=== PATIENT | male | born 1975 | race African-American/Black ===

== ENCOUNTER 2025-05-30 17:01 | Emergency (ER) | payer OTHER, SELFPAY ==
--- OUTSIDE RECORDS SUMMARY | 2024-03-16 11:45 | XMS_ITS ---
Author Organization [facility] vices Address [address] [place], [place] [id number] Care Team Providers Care Neurology Stroke Physician Name Role Phone Ronnie Swartz Unavailable [phone] REASON FOR VISIT HTN & GERD Encounters Encounter Location Date Provider Diagnosis Main [address] [place], [place] [id number] 03/16/2024 Ronnie Swartz Plan Of Treatment No Information Progress Notes * Koko BHATIA JrDOB:1974 (49 yo M)Acc No.[id number]:03/16/2024 Medical Note Patient: Joselito LI Koko Ennis Provider: JUANA Arias :1975 A ge:48 Y S ex:Male Date:03/16/2024 Address:[address] [place], [place] [id number] Subjective: * Chief Complaints: * 1 . HTN & GERD. * Medical History: Objective: * Vitals: Assessment: Plan: * Treatment: * Billing Information: * Visit Code: * Procedure Codes: * Electronic signature of JUANA Devine on 05/30/2025 at 05:08 PM EDT Sign off status: Pending * Provider: JUANA Arias Date: 03/16/2024 Generated for Ronald ng/Fajuarezg/eTransmitting on: 05/30/2025 05:08 PM EDT
[2025-05-30 17:04] VITALS: BP 156/109; PULSE 106; TEMP 36.7; O2SAT 97; BMI 26.8
--- OUTSIDE RECORDS SUMMARY | 2025-05-30 17:08 | XMS_ITS | Encounter Summary ---
Author Organization [employer] tem Address [id number] [address] [place] [address] Care Team Providers Care Test Technician Name Role Phone Kong Mccarthy Kasandra MIRZA Primary Care Provider [phone] Encounter Details Date Type Department Care Team (Latest Contact Info) Description 05/27/2025 Travel Social History Tobacco Use Types Packs/Day Years Used Date Smoking Tobacco: Former Cigars Smokeless Tobacco: Never Comments:Quit smoking cigars about 10 yrs ago Alcohol Use Standard Drinks/Week Comments Yes 0 (1 standard drink = 0.6 oz pur e alcohol) socially Overall Financial Resource Strain (CARDIA) Answe r Date Recorded How hard is it for you to pa y for the very basics like food, housing, medical care, and heating? Not hard at all 04/15/2025 PHQ-2 Answer Date Recorded Total Score 0 04/15/2025 PRAPARE - Transportation Answer Date Re corded In the past 12 months, has l ack of transportation kept you from medical appointments or from getting medications? No 03/28 In the past 12 months, has l ack of transportation kept you from meetings, work, or from getting things needed for daily living? No 04/15/2025 Housing Instability Answer Date Recorde d Are you worried or concerned that in the next two months you may not have stable housing that you own, rent or stay in as a part of a household? No 04/15/2025 Childcare Answer Date Recorded Childcare Unknown 04/08/2019 Employment Answer Date Recorded Employment Unknown 04/08/2019 Hunger Screening Answer Date Recorded Within the past 12 months we worried whether our food would run out before we got money to buy more. Never True 05/27/2025 Within the past 12 months th e food we bought just didn't last and we didn't have money to get more. Never True 05/27/2025 Sex and Gender Information Value Date Recorded Sex Assigned at Not on file Legal Sex Male 11:57 AM EDT Gender Identity Not on file Sexual Orientation Not on file documented as of this encounter Plan of Treatment Upcoming Encounters Date Type Department Care Team (Late st Contact Info) Description 06/02/2025 3:00 PM EDT Office Visit [facility] [address] [place] [phone] Kong Mccarthy, DO [address] [facility], [facility], [facility] [address] 07/15/2025 3:30 PM EDT Office Visit [facility] [address] [place] [address] [place] [phone] Kong Mccarthy, DO [address] [facility], [facility], [facility] [place] [address] documented as of this encounter Visit Diagnoses Not on filedocumented in this encounter Additional Health Concerns Assessment Noted Time PHQ-9 Depression Total Score: 0 04/15/20 25 2:01 PM EDT documented as of this encounter Care Teams Test Technician Relationship Specialty Start Date End Date Kong Mccarthy DO [address] [facility], [facility], [facility] [place] [address] PCP - General Family Medicine 05/27/25 documented as of this encounter
--- OUTSIDE RECORDS SUMMARY | 2025-05-30 17:08 | XMS_ITS | Patient Health Record ---
Author Organization Count Includes [facility] vices Address [address] [place], [place] [id number] Care Team Providers Care Sustainability Engineer Name Role Phone Ronnie Swartz Unavailable [phone] Cayden Lori Unavailable Allergies No Known Allergies Reason For Referral No Information Medications Medication SIG (Take, Route, Frequency, Duration) Notes Start Date End Date Status amLODIPine Besylate 10 MG 1 tablet Orall y Once a day; Duration: 90 days Active Social History Tobacco Use: Social History Observation Description Date Details (start date - stop date) Never Smoker NA - NA Tobacco Use/Smoking Question Answer Notes Tobacco use: nonsmoker patient enter ed data How long has it been since you last smoked? 1-5 years CAGE-AID Questionnaire (2018 Edition) Question Answer Notes Have you ever felt that you ought to cut down on your drinking or drug use? No patient entered data Have you ever felt bad or gu ilty about your drinking or drug use? No patient entered data CAGE-AID Score 0 Interpretation Negative PRAPARE Question Answer Notes Date Completed/Updated: 09/26/2023 idae nt entered data What is your current housing situation? I have housing patient entered data Are you worried about losing your housing? No patient entered data What is the highest level of school that you have finished? More than high school patient entered data What is your current work situation? Unemployed and seeking work patient entered data In the past year, have you o r any family members you live with been unable to get any of the following when it was really needed? Check all that apply Utilities Has lack of transportation k ept you from medical appointments, meetings, work or from getting things needed for daily living? No How often do you see or talk to people that you care about and feel close to? (For example: talking to friends on the phone, visiting friends or family, going to taoism or club meetings) Less than once a week patient entered data In the past year have you sp ent more than 2 nights in a row in a alf, half-way, fci center, or juvenile correctional facility? No patient entered data What country are you from? [place] paul lugo entered data In the past year, have you b een afraid of your partner or ex-partner? No patient entered data PRAPARE Score: 7 Problems Problem Type SNOMED Code ICD Code Onset Dates Problem Status W/U Status Risk Notes Problem Essential hypertension (44352102) Hypertension, unspecified type (I10) Active confirmed Problem Gastroesophageal reflux disease (516666681) Gastroesophageal reflux disease, unspecified whether esophagitis present (K21.9) Active confirmed Problem Gastroesophageal reflux disease (290791047) GERD (gastroesophageal reflux disease) (K21.9) Active confirmed Comment:-pt was been having some intermittent chest discomfort -improved after start of PPI -now only minimal pains if any -has been taking omeprazole 20mg PRN and still not having chest pain issues. Usually only once or twice a week at the most. not really having issues -c/w current medication a this time on an as needed basis -f/u in 6 months or sooner if issues arise, Problem Depression screening (641404891) Screening for depression (Z13.31) Active confirmed Description:De pression screening Problem Hypertension (66276138) HTN (hypertension) (I10) Active confirmed Comment:-Pt's BP mildly elevated today in the office -Pt is asymptomatic at this time. -Currently taking Amlodipine 5mg. Compliant with medication and tolerating it well -CMP from 03/2019 was normal besides mildly elevated glucose -C/w current medication at this time. -Counseled pt on lifestyle modifications including low salt diet and physical activity -Encouraged smoking cessation -Encouraged pt to take BP at home at least a couple times a week. -f/u in 6+ months, Problem Costochondritis (29789164) Costochondritis (M94.0) Active confirmed Comment:-pt has chest pain that seems muscular in etiology -went to ED 10 days ago when pain just started -EKG, Labs, CXR all were normal at that time. chest pain in the same now as it was then -will give pt a course of prednisone to see if this helps with the chest pain as he already failed a muscle realxer and NSAID -explained pt needs to rest and can use heat/ice. -f/u in 2 weeks, Problem Pharyngitis (938302096) Pharyngitis (J02.9) Active confirmed Comment:-pt has had a sore throat -son dx with strep recently -pt does have a little drainage. but not a lot of other sig. sx -rapid strep was negative -will hold off on giving antibioitc at this time -Can also take vitamin C, Claritin, Mucinex, cough drops, and honey as needed for sx relief -call or f/u at the beginning of the week if not feeling better, Encounters Encounter Location Date Provider Diagnosis Main [address] [place], [place] [phone] 09/14/2024 Lori Rodarte Hypertension, unspecified type I10 Assessments Encounter Date Diagnosis (ICD Code) Assessment Notes Treatment Notes Treatment Clinical Notes Section Notes 09/14/2024 Hypertension, unspecified type (ICD-10 - I10) Plan Of Treatment No Information Insurance Providers Payer Name Payer Address Payer Phone Subscriber Number Group Number Insured Name Patient Relationship to Insured Coverage Start Date Coverage End Date [facility] [address] [place] [address] [id number] Koko Diane Self - patient is the insured 6 Medicaid [employer] after [employer] [address] [place] [address] [id number] Koko Diane Self - patient is the insured Medical (General) History Medical History History ICD Code GERD (gastroesophageal reflux disease) HTN (hypertension) Surgical History Surgery Date(Month/Year)
--- OUTSIDE RECORDS SUMMARY | 2025-05-30 17:08 | XMS_ITS | Clinical Summary ---
Author Organization [facility] [employer] [facility] tem Address [id number] [address] [place] [address] Care Team Providers Care Pie Bakery Laborer Name Role Phone Kong Mccarthy DO Primary Care Provider [phone] Allergies No known active allergies Medications amLODIPine (NORVASC) 10 mg tabletIndications :Essential hypertension Take 1 tablet (10 mg total) by mouth daily. 90 tablet 1 04/15/2025 Active Active Problems Problem Noted Date Diagnosed Date Essential hypertension 04/15/2025 Assessment & Plan (04/15/2025 5:47 PM EDT): Chronic hypertension with mildly elevated blood pressure today in the office. Patient is asymptomatic. Patient has been taking amlodipine intermittently to conserve medication. Continue with amlodipine 10 mg 1 tablet daily. Encounters Date Type Department Care Team Description 05/27/2025 2:48 PM EDT - 05/27/2025 4:25 PM EDT Emergency [facility] - Emergency [address] [place] [phone] Left leg pain (Primary Dx) Discharge Disposition: Home 05/27/2025 Travel 04/15/2025 2:00 PM EDT Office Visit [facility] [address] [place] [address] [place] [phone] Kong Mccarthy, Essential hypertension (Primary Dx); Special screening for malignant neoplasm of colon 04/15/2025 Travel 04/06/2025 11:00 AM EDT Office Visit [facility] [address] [place] [phone] Paola Soares APRN-ASSOCIATE AUTOMATION ENGINEER Abscess, gluteal, left (Primary Dx) 04/06/2025 Travel 03/23/2025 8:45 AM EDT Office Visit [facility] [address] [place] [address] Mo Blair MD Abscess, gluteal, left (Primary Dx) 03/23/2025 Travel from Last 3 Months Family History Medical History Relation Name Comments Cancer Father Cancer Mother Mom Hypertension Mother Mom Relation Name Status Comments Father Mother Mom had Bone cancer Social History Tobacco Use Types Packs/Day Years [...] on file Sexual Orientation Not on file Last Filed Vital Signs Vital Sign Reading Time Taken Comments Blood Pressure 151/93 05/27/2025 3:00 PM EDT Pulse 74 05/27/2025 2:58 PM EDT Temperature 36.5 C (97.7 F) 05/27/2025 2:58 PM EDT Respiratory Rate 16 05/27/2025 2:58 PM EDT Oxygen Saturation 99% 05/27/2025 2:58 PM EDT Inhaled Oxygen Concentration - - Weight 78 kg (172 lb) 05/27/2025 2:58 PM EDT Height 172.7 cm (5' 8 ) 05/27/2025 2:58 PM EDT Body Mass Index 26.15 05/27/2025 2:58 PM EDT Plan of Treatment Upcoming Encounters Date Type Department Care Team (Late st Contact Info) Description 06/02/2025 3:00 PM EDT Office Visit [facility] [address] [place] [phone] Kong Mccarthy, [address], [place] [address] 07/15/2025 3:30 PM EDT Office Visit [facility] [address] [place] [phone] Kong Mccarthy, [address], [place] [address] Health Maintenance Due Date Last Done Comments Adult BMI Follow Up Plan 1991 DTaP,Tdap and Td Vaccines (1 - Tdap) 1992 Zoster (Shingles) Vaccine (1 of 2) 2023 COVID-19 Vaccine (3 - season) 06/28/202404/2021, 07/13/2021 Influenza Vaccine 06/28/2025 Depression Screening 04/15/2026 04/15/2025 Tobacco Screening 04/15/2026 04/15/2025 Adult BMI Screening 05/27/2026 05/27/2025 Medical Devices Not on file Procedures Procedure Name Priority Date/Time Associated Diagnosis Comments XR HIP LT 2-3 VIEWS W OR WO PELVIS STAT 05/27/2025 3:25 PM EDT XR SPINE LUMBAR 2 OR 3 VWS STAT 05/27/2025 3:24 PM EDT from Last 3 Months Results * X-ray hip left 2-3 views with or without pelvis (05/27/2025 3:25 PM EDT) Anatomical Region Laterality Modality Lower Extremities, MSK, Hip Left Comp uted Radiography 05/27/2025 3:27 PM EDT Narrative 05/27/2025 3:28 PM EDT EXAM: XR HIP LT 2-3 VIEWS W OR WO PELVIS INDICATION: Pain COMPARISON: None TECHNIQUE: AP view of the pelvis and AP and frog leg views of the left hip FINDINGS/IMPRESSION: Pelvic ring is intact. No acute fractures, dislocations, or subluxations. Mild degenerative changes of the femoral acetabular joints Finalized by Kong Parekh on 05/27/2025 3:28 PM Procedure Note Kong Parekh MD - 05/27/2025 EXAM: XR HIP LT 2-3 VIEWS W OR WO PELVIS INDICATION: Pain COMPARISON: None TECHNIQUE: AP view of the pelvis and AP and frog leg views of the lefthip FINDINGS/IMPRESSION: Pelvic ring is intact. No acute fractures, dislocations, or subluxations. Mild degenerativechanges of the femoral acetabular joints Finalized by Kong Parekh on 05/27/2025 3:28 PM Madai Mondragon RECORDING ARTIST-ASSOCIATE AUTOMATION ENGINEER IMG DIAGNOSTIC IMAGING ORD ERABLES Final Result * X-ray spine lumbar 2 or 3 views (05/27/2025 3:24 PM EDT) Anatomical Region Laterality Modality MSK, Neuro, Spine, L-spine N/A Compu claude Radiography 05/27/2025 3:26 PM EDT Narrative 05/27/2025 3:27 PM EDT EXAM: XR SPINE LUMBAR 2 OR 3 VWS INDICATION: Pain COMPARISON: None TECHNIQUE: 3 views of the lumbar spine FINDINGS/IMPRESSION: 5 nonrib-bearing lumbar-type vertebral bodies. Vertebral body heights and intensities are within normal limits. Mild retrolisthesis of L5 on S1. Degenerative changes most pronounced at L5-S1. No definite evidence of acute fracture Finalized by Kong Parekh on 05/27/2025 3:27 PM Procedure Note Kong Parekh MD - 05/27/2025 EXAM: XR SPINE LUMBAR 2 OR 3 VWS INDICATION: Pain COMPARISON: None TECHNIQUE: 3 views of the lumbar spine FINDINGS/IMPRESSION: 5 nonrib-bearing lumbar-type vertebral bodies. Vertebral body heights and intensities are within normal limits. Mildretrolisthesis of L5 on S1. Degenerative changes most pronounced at L5-S1. No definite evidence of acute fracture Finalized by Kong Parekh on 05/27/2025 3:27 PM Madai Mondragon RECORDING ARTIST-ASSOCIATE AUTOMATION ENGINEER IMG DIAGNOSTIC IMAGING ORD ERABLES Final Result from Last 3 Months Insurance [employer] Care Teams Pie Bakery Laborer Relationship Specialty Start Date End Date Kong Mccarthy DO [address] [place] [address], [place] [address] PCP - General Family Medicine 05/27/25
--- NOTE | 2025-05-30 18:10 | ED_ITS ---
HPI HPI - General Adult General Chief complaint: Extremity Injury, Lower Stated complaint: LE PAIN Time Seen by Provider: 05/30/25 17:04 Source: patient Mode of arrival: walk-in Limitations: no limitations History of Present Illness HPI narrative: 49-year-old male to the emergency department chief complaint of pain that radiates from his hip down to his ankle. Symptoms been ongoing for over 2 weeks. He has been seen in urgent care and was placed on a steroid and muscle relaxer. He had some mild relief from this. Symptoms not resolved so he was seen at the [place] [facility] and reports he was given 2 shots however he does not know what he got. He denies any numbness, weakness, tingling. Denies any bowel bladder incontinence or retention. There is no back pain. No falls or inju josué. No fever, sweats, chills. No leg swelling. Related Data Previous Rx's ?Medication ?Instructions ?Recorded hydrocodone 5 mg-acetaminophen 325 1 tab PO Q6H PRN pa in 3 days #12 05/30/25 mg tablet tabs prednisone 20 mg tablet 40 mg (2 x 20 mg) PO DAILY 5 days 05/30/25 #10 tabs Allergies Allergy/AdvReac Type Severity Reaction Status Date / Time No Known Drug Allergies Allergy Verified 05/30/25 17:04 Review of Systems ROS Status of ROS 10 or more systems reviewed and unremark able except as noted in history and below PFSH PFSH Social History Little interest or pleasure in doing things: not at all Feeling down, depressed, or hopeless: not at all Exam Narrative Exam Narrative: VITALS: I have reviewed the triage vital signs. GENERAL: Well developed, well appearing adult male in no acute distress. Ambulates with cane with ease. NEURO: Alert and oriented. Moves all extremities. Face is symmetric and expressive. EYES: PERRL. No scleral icterus or conjunctival injection. No discharge. HENT: Normocephalic, atraumatic. Hearing is grossly intact. Nares grossly patent and without discharge. Mucous membranes moist. NECK: No JVD. Patient moves neck without restriction. CARDIO: Rhythm regular. Normal rate. No murmur, rub, or gallop. Pulses equal bilaterally in the upper and lower extremity. No lower extremity edema. PULM: Lungs clear to auscultation in all agudelo. No wheezes, rales, or rhonchi. No conversational dyspnea. No splinting, stridor, or accessory muscle use. GI/: Abdomen is soft and non-tender. Normoactive bowel sounds. Left lower Extremity: DP and PT pulses intact. Limb is similar color and temperature to the contralateral limb. Compartments soft. No swelling. No ecchymosis. No medial malleolus tenderness. No lateral malleolus tenderness. No tenderness at the base of the fifth metatarsal. No midfoot tenderness. No fibular head tenderness. Able to bear weight with arches maintained. Sensation is intact over the foot and lower leg. Dorsiflexion/plantar flexion, knee flexion/extension, hip flexion/extension are grossly intact by strength testing. SKIN: Warm and dry. Normal turgor. No rash or lesions appreciated. PSYCH: Mood, affect, and interaction is appropriate to the setting. Constitutional Vital Signs, click to edit/add: Last Vital Signs Temp 98.0 F 05/30/25 17:04 Pulse 106 H 05/30/25 17:04 Resp 18 05/30/25 17:04 BP 156/109 H 05/30/25 17:04 Pulse Ox 97 05/30/25 17:04 O2 Del Method Room Air 05/30/25 17:04 Course Vital Signs Vital signs: Vital Signs Temperature 98.0 F 05/30/25 17:04 Pulse Rate 106 H 05/30/25 17:04 Respiratory Rate 18 05/30/25 17:04 Blood Pressure 156/109 H 05/30/25 17:04 Pulse Oximetry 97 05/30/25 17:04 Oxygen Delivery Method Room Air 05/30/25 17:04 Temperature 98.0 F 05/30/25 17:04 Pulse Rate 106 H 05/30/25 17:04 Respiratory Rate 18 05/30/25 17:04 Blood Pressure 156/109 H 05/30/25 17:04 Pulse Oximetry 97 05/30/25 17:04 Oxygen Delivery Method Room Air 05/30/25 17:04 Medical Decision Making [facility] Narrative Medical decision making narrative: 49-year-old male to the emergency department chief complaint of left-sided leg pain. Vital stable, the patient is afebrile. The limb is neurovascularly intact. Unremarkable exam. His description of the pain sounds more radicular, sciatic. Discussed with the patient. I reviewed the imaging performed at [facility]. No further imaging indicated at this time. He is given a short course of pain medication. OARRS was reviewed. He already has scheduled follow-up with his doctor on the sixth. Short course of steroids. Return precautions were discussed. All questions were answered. The patient was discharged home. Medical Records Medical records reviewed: Yes I reviewed the patient's medical records Discharge Plan Discharge Chief Complaint: Extremity Injury, Lower Clinical Impression: Sciatica Patient Disposition: Home, Self-Care Time of Disposition Decision: 17:29 Condition: Good Mode of Transportation: Private Vehicle Prescriptions / Home Meds: New hydrocodone-acetaminophen 5-325 mg tablet 1 tab PO Q6H PRN (Reason: pain) 3 Days Qty: 12 0RF prednisone 20 mg tablet 40 mg PO DAILY 5 Days Qty: 10 0RF Print Language: Amharic Instructions: Sciatica (ED) Additional Instructions: Call the office of your primary care doctor to arrange for follow-up within the above-stated timeframe. Your ED visit was focused on your acute issue and does not replace primary care. You should review your labs, imaging, and diagnoses from this ED visit with your primary care physician. There may be non-emergent/ incidental findings that need further evaluation. You should review your vital signs including blood pressure with your PCP. If you were prescribed medications you should discuss possible side-effects and drug interactions with your pharmacist. Call 911 or go to the nearest Emergency Department if you develop any new or worsening symptoms. Seek immediate medical attention if you develop: increasing pain, numbness, tingling, weakness, loss of motion in your arms or legs, loss of control of your urine or stool, fever, abdominal pain, chest pain, shortness of breath, or any new or worsening symptoms. Referrals: Danyelle Boyle NP [Primary Care Provider] - 1 week Discharge Date/Time: 05/30/25 17:37
== END 2025-05-30 17:37 | disposition home or self-care (01) ==
PROVIDERS: Emergency Provider Student in an Organized Health Care Education/Training Program; PCP Nurse Practitioner
DX: M54.32 Sciatica, left side (principal)
CPT/HCPCS: 99283